=== PATIENT | male | born 1960 | race Caucasian/White ===

== ENCOUNTER → 2017-03-13 | Outpatient (CLI) | payer BC ==
[~2017-03-13] MED LIST: REGADENOSON 0.4 MG/5 ML DISP.SYRIN. IV ONE
--- NOTE | 2017-03-13 12:53 | PCVCIMAG ---
APPROVED REPORT Study performed: 03/13/2017 09:11:03 EXAM: Comprehensive 2D, Doppler, and color-flow Echocardiogram Patient Location: Echo lab Status: routine BSA: 2.61 HR: 88 bpmBP: 152/84 mmHg Rhythm: NSR Other Information Study Quality: Fair Technically limited study due to body habitus. Risk Factors: Cardiac Risk Factors: HTN Indications Congestive Heart Failure Dyspnea Obesity 2D Dimensions LVEF(%): 42.84 (>50%) IVSd: 11.91 (7-11mm) LVDd: 49.35 mm PWd: 12.29 (7-11mm) LVDs: 38.91 (25-40mm) Left Atrium: 47.80 (27-40mm) Aortic Root: 34.94 mm LV Single Plane 4CH: 50.65 % LV Single Plane 2CH: 48.72 %Reyes's LVEF: 49.69 % Biplane EF: 51.4 % Volumes Left Atrial Volume (Systole) Single Plane 4CH: 92.81 mLSingle Plane 2CH: 81.30 mL LA ESV Index: 33.00 mL/m2 Aortic Valve AoV Peak Rubén.: 1.61 m/s AO Peak Gr.: 10.37 mmHgLVOT Max P.65 mmHg LVOT Max V: 1.08 m/s Mitral Valve E/A Ratio: 2.2 MV Decel. Time: 173.61 ms MV E Max Rubén.: 1.06 m/s MV A Rubén.: 0.49 m/s IVRT: 96.89 ms Pulmonary Valve PV Peak Rubén.: 0.83 m/sPV Peak Gr.: 2.73 mmHg Pulmonary Vein P Vein S: 0.44 m/sP Vein A: 0.28 m/s P Vein D: 0.71 m/sP Vein A Dur.: 124.6 msec P Vein S/D Ratio: 0.62 Tricuspid Valve TR Peak Rubén.: 2.58 m/s TR Peak Gr.: 26.53 mmHg Left Ventricle The left ventricle is normal size. There is normal LV segmental wall motion. Mild concentric left ventricular hypertrophy. Left ventricular systolic function is normal. The left ventricular ejection fraction is within the normal range. LVEF is 55%. Grade II - pseudonormal filling dynamics. Right Ventricle The right ventricle is normal size. The right ventricular systolic function is normal. Atria Left atrium is mildly dilated. The right atrium size is normal. Aortic Valve The aortic valve is normal in structure. No aortic regurgitation is present. There is no aortic valvular stenosis. Mitral Valve The mitral valve is normal in structure. There is no mitral valve regurgitation noted. No evidence of mitral valve stenosis. Tricuspid Valve The tricuspid valve is normal in structure. Mild tricuspid regurgitation with PAP of 34 mmHg. Pulmonic Valve The pulmonary valve is normal in structure. There is no pulmonic valvular regurgitation. Great Vessels The aortic root is normal in size. IVC is normal in size and collapses with >50% inspiration Pericardium There is no pericardial effusion. <Conclusion> The left ventricle is normal size. Mild concentric left ventricular hypertrophy. LVEF is 55%. Grade II - pseudonormal filling dynamics. The right ventricle is normal size. Left atrium is mildly dilated. The aortic valve is normal in structure. There is no mitral valve regurgitation noted. Mild tricuspid regurgitation with PAP of 34 mmHg. There is no pericardial effusion.
--- NOTE | 2017-03-13 13:30 | PCVCIMAG ---
EXAM: BILATERAL SUPERFICIAL VENOUS DUPLEX INDICATION: Leg pain and swelling. FINDINGS: Right leg: No thrombus in the common femoral, main femoral, or popliteal veins. These veins are compressible. Right Great Saphenous Vein: At the saphenofemoral junction the diameter is 6.8 mm, in the mid thigh it is 7.2 mm, and in the calf it is 6.1 mm. There is not significant venous insufficiency/reflux throughout. Venous insufficiency/reflux duration is 0.3 seconds. Right Small Saphenous Vein: At the saphenopopliteal junction the diameter is 5.0 mm, and in the calf it is 4.4 mm. There is not significant venous insufficiency/reflux throughout. Venous insufficiency/reflux duration is 0 seconds. There is a cranial extension present. Left leg: No thrombus in the common femoral, main femoral, or popliteal veins. These veins are compressible. Left Great Saphenous Vein: At the saphenofemoral junction the diameter is 7.1 mm, in the mid thigh it is 4.7 mm, and in the calf it is 5.1 mm. There is not significant venous insufficiency/reflux throughout. Venous insufficiency/reflux duration is 0.4 seconds. Left Small Saphenous Vein: At the saphenopopliteal junction the diameter is 7.6 mm, and in the calf it is 4.8 mm. There is not significant venous insufficiency/reflux throughout. Venous insufficiency/reflux duration is 0 seconds. There is a cranial extension present. IMPRESSION: Right Great Saphenous Vein: No significant venous insufficiency/reflux is present as noted above. Right Small Saphenous Vein: No significant venous insufficiency/reflux is present as noted above. Left Great Saphenous Vein: No significant venous insufficiency/reflux is present as noted above. Left Small Saphenous Vein: No significant venous insufficiency/reflux is present as noted above. LOC:[id number]
--- NOTE | 2017-03-13 13:31 | PCVCIMAG ---
EXAM: BILATERAL LOWER EXTREMITY ARTERIAL DUPLEX INDICATION: Peripheral Arterial Disease. Leg pain. FINDINGS: Right Leg: Satisfactory arterial waveforms throughout the common/profunda/superficial femoral, popliteal, anterior tibial, peroneal, and posterior tibial arteries. No flow limiting stenosis seen. Left Leg: Satisfactory arterial waveforms throughout the common/profunda/superficial femoral, popliteal, anterior tibial, peroneal, and posterior tibial arteries. No flow limiting stenosis seen. IMPRESSION: No flow limiting stenosis in the right lower extremity. No flow limiting stenosis in the left lower extremity. LOC:[id number]
--- NOTE | 2017-03-14 14:02 | PCVCIMAG ---
APPROVED REPORT Exam: Nuclear Stress Test Indication: Abnormal EKG, Dyspnea, Chest pain Patient Location: Out-Patient Stress Nurse: Neelam Su RN, MARLENE Amezcua Tech:Nicole HollingsworthDMITRI dunnMT Ht: 5 ft 9 in Wt: 341 lbs BSA: 2.59 m2 HR: 86 bpm BP: 141/76 mmHg BMI: 50.3 Rhythm: SR, LBBB Medical History Medical History: Hyperlipidemia, Diabetes, CHF, Obesity, Age Medications: Albuterol, Atorvastatin, Lasix, Insulin, Bystolic (held 24 hours) Ramipril, Aldactone Allergies: ASA, Losartan Pretest Chest Pain Characteristics: No chest pain Exercise History: Sedentary Physical Disabilities: Legs NM EXAM: Myocardial Perfusion REST/STRESS Imaging Protocol: Rest Tc-99m/Stress Tc-99m 1 day Resting Data Rest SPECT myocardial perfusion imaging was performed in supine position 45 minutes following the intravenous injection of 14.7 mCi of Tc-99m Sestamibi. Time of rest injection: 1315 Date: 03/13/2017 Administration Route: IV Administration Site: Right AC Pharmacologic Stress Pharmacologic stress test was performed by injecting Regadenoson 0.4 mg IV push followed by the intravenous injection of 39.3 mCi of Tc-99m Sestamibi. Time of stress injection: 1430 Date: 03/13/2017 Administration Route: IV Administration Site: Right AC Gated Stress SPECT was performed 45 minutes after stress injection. The images were gated to evaluate regional wall motion and calculate left ventricular ejection fraction. Comments Poor technical quality due to patients BMI, would encourage furture imaging at [facility]. Study Quality Study: Poor Study Data Post stress, the left ventricular ejection was 61%.. SSS: 2 SRS: 4 SDS: 2 TID = 1.15. Perfusion Medium sized area of mild reversible ischemia involving the mid/apical anteroseptal left ventricle consistent with a left anterior descending distribution. Wall Motion No regional wall motion abnormalities. Nuclear Conclusion Medium sized area of mild reversible ischemia involving the mid/apical anteroseptal left ventricle consistent with a left anterior descending distribution. Visual transient ischemic dilatation on the post stress images is a nonspecific finding but may be seen with multivessel disease. Technically limited study. No prior study available for comparison. Interpreted by: Sebastien Green MD Electronically Approved: 03/13/2017 20:02:46 Stress Test Details Stress Test: Pharmacologic stress testing performed using 0.4 mg of regadenoson per 5 mL given IV over 10 seconds. Reason for pharmacologic stress test: physical limitation. HR Resting HR: 86 bpmMax Heart Rate (APMHR): 165 bpm Max HR Achieved: 96 bpmTarget HR (85% APMHR): 140 bpm % of APMHR: 58 Recovery HR: 94 bpm BP Resting BP: 141/76 mmHg Max BP: 127/63 mmHg ECG Resting ECG: Sinus Rhythm, nonspecific ST-T abnormalities Stress ECG: Sinus Rhythm, nonspecific ST-T abnormalities Arrhythmia: None Recovery ECG: Sinus Rhythm, nonspecific ST-T abnormalities Clinical Reason for Termination: Completed protocol Stress Symptoms: Nausea Exercise duration: 0 min 55 sec Symptoms resolved during recovery. Stress ECG Conclusion ECG: Non-ischemic <Conclusion> ECG: Non-ischemic
== END | disposition home or self-care (01) ==
LOC: PCVCIMAG 08:44
PROVIDERS: ATTEND Internal Medicine Cardiovascular Disease
DX: I07.1 Rheumatic tricuspid insufficiency (principal); M79.89 Other specified soft tissue disorders; I73.9 Peripheral vascular disease, unspecified; I44.7 Left bundle-branch block, unspecified; E78.5 Hyperlipidemia, unspecified; I27.81 Cor pulmonale (chronic); I11.0 Hypertensive heart disease with heart failure; I50.9 Heart failure, unspecified; K21.9 Gastro-esophageal reflux disease without esophagitis; E11.9 Type 2 diabetes mellitus without complications; R94.31 Abnormal electrocardiogram [ECG] [EKG]; G47.33 Obstructive sleep apnea (adult) (pediatric); Z79.4 Long term (current) use of insulin
CPT/HCPCS: 78452; 93017; 93306; 93925; 93970; A9500; J2785